=== PATIENT | male | born 1990 | race Caucasian/White ===

== ENCOUNTER 2025-05-13 06:28 | Emergency (ER) | payer MEDICAID ==
[~2025-05-13] VITALS: Ht 172.7 cm; Wt 91.0 kg
[2025-05-13 06:33] VITALS: O2SAT 99
[2025-05-13 09:03] VITALS: BP 108/66; PULSE 71; RESP 18; TEMP 36.9; O2SAT 97
[2025-05-13] MEDS: KETOROLAC 15MG/ML VIAL IM ONE (09:03)
== END 2025-05-13 09:13 | disposition home or self-care (01) ==
LOC: ER 06:28
DX: M25.571 Pain in right ankle and joints of right foot (principal)
CPT/HCPCS: 93971; 73562; 73610; 96372; 99285; J1885; Z7610